=== PATIENT | female | born 1970 | race Caucasian/White ===

== ENCOUNTER 2017-09-24 10:32 | Outpatient (CLI) | payer BC | END 2017-09-24 10:33 | disposition home or self-care (01) | LOC: BICMAMMO 10:32 | PROVIDERS: ATTEND Internal Medicine | DX: Z12.31 Encounter for screening mammogram for malignant neoplasm of breast (principal) | CPT/HCPCS: 77063; 77067 ==

== ENCOUNTER 2017-10-12 13:08 | Outpatient (CLI) | payer BC | END 2017-10-12 13:09 | disposition home or self-care (01) | LOC: BICMAMMO 13:08 | PROVIDERS: ATTEND Internal Medicine | DX: R92.8 Other abnormal and inconclusive findings on diagnostic imaging of breast (principal); N63.10 Unspecified lump in the right breast, unspecified quadrant | CPT/HCPCS: G0279 ==

== ENCOUNTER 2017-12-12 15:36 | Outpatient (CLI) | payer BC ==
--- NOTE | 2017-12-12 17:52 | ULT ---
TRANSABDOMINAL AND TRANSVAGINAL PELVIC ULTRASOUND: 12/12/17 INDICATION: Irregular menstruation. TECHNIQUE: Atkins scale, color doppler and vascular duplex with spectral analysis was performed of the pelvis via transabdominal and transvaginal approach. FINDINGS: Uterus measures 7.6 x 5.1 x 5.5 cm. Endometrial stripe measures 3 mm. The right ovary measures 2.4 x 17 x 1.5 cm. There is normal flow to the right ovary. The left ovary is not well seen. There is a pr ominent 4 cm heterogeneous fibroid seen within the wall of the uterine fundus. IMPRESSION: 1. Large intramural fibroid within the uterine fundus. 2. Nonvisualization of the left ovary. 3. Endometrial stripe of 3 mm is within normal limits for a premenopausal female. 4. Visualized right ovary was normal appearing. POS: [facility]
== END 2017-12-12 15:37 | disposition home or self-care (01) ==
LOC: BICULT 15:36
PROVIDERS: ATTEND Internal Medicine
DX: N92.6 Irregular menstruation, unspecified (principal); D25.1 Intramural leiomyoma of uterus
CPT/HCPCS: 76856